=== PATIENT | male | born 1980 | race Caucasian/White ===

== ENCOUNTER 2016-12-15 15:34 | Inpatient (IN) | payer SELFPAY ==
[2016-12-15] MEDS ORDERED: Bacitracin pkt 1 gm Pkt TP STA (16:29)
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
[2016-12-15] MEDS ORDERED: Bacitracin pkt 1 gm Pkt TP ONE (17:01)
[2016-12-15 17:46] LABS: % BASOPHILS 0.9 % (0.0-2.0); % EOSINOPHILS 0.9 % (0.0-5.0); % LYMPHOCYTES 15.2 % (20.0-50.0); HEMOGLOBIN 15.9 gm/dL (13.2-17.3); MEAN CELL VOLUME 90.6 fl (80-99); MEAN CORPUSCULAR HEMOGLOBIN 31.3 pg (26.0-30.0); MEAN CORPUSCULAR HGB CONC 34.5 pg (28.0-36.0); MEAN PLATELET VOLUME 7.4 fl; NEUTROPHILE ABSOLUTE 6.9 Th/cmm (1.8-8.0); PLATELET COUNT 198 Th/cmm (150-400); RED BLOOD COUNT 5.08 Mil/cmm (4.30-5.70); RED CELL DISTRIBUTION WIDTH 13.3 % (11.5-20.0); WHITE BLOOD COUNT 9.2 Th/cmm (4.8-10.8)
[2016-12-15 18:06] LABS: ALB/GLOB RATIO 1.5 (1.0-1.8); ALKALINE PHOSPHATASE 49 U/L (34-104); BILIRUBIN,TOTAL 0.9 mg/dL (0.3-1.0); BUN - UREA NITROGEN 11 mg/dL (7-25); CALCIUM SERUM 9.4 mg/dL (8.6-10.3); CARBON DIOXIDE 22.8 mEq/L (21.0-31.0); CHLORIDE 108 mEq/L (98-107); GLUCOSE 100 mg/dL (70-105); POTASSIUM SERUM 3.8 mEq/L (3.5-5.1); SGOT 39 U/L (13-39); SGPT/ALT 43 U/L (7-52); SODIUM SERUM 141 mEq/L (136-145)
[2016-12-15 18:35] LABS: CREATINE KINASE MB 7.2 ng/mL (0.6-6.3)
[2016-12-15 19:47] LABS: AMPHETAMINE URINE POSITIVE (NEGATIVE); BARBITURATES URINE NEGATIVE (NEGATIVE); METHADONE URINE NEGATIVE (NEGATIVE)
[2016-12-15 19:48] LABS: URINE BILIRUBIN NEGATIVE (NEGATIVE); URINE COLOR STRAW; URINE GLUCOSE (UA) NEGATIVE (NEGATIVE)
[2016-12-15 19:49] LABS: URINE BLOOD NEGATIVE (NEGATIVE); URINE KETONE NEGATIVE (NEGATIVE); URINE PH 6.5; URINE PROTEIN NEGATIVE (NEGATIVE); URINE UROBILINOGEN 0.2 E.U./dL (0.2 - 1.0)
[2016-12-15 19:50] LABS: URINE BACTERIA NONE SEEN /hpf (NONE SEEN); URINE EPITHELIAL CELLS NONE SEEN /lpf (FEW); URINE RBC NONE SEEN /hpf (0-5); URINE WBC NONE SEEN /hpf (0-5)
[2016-12-15 21:39] LABS: % BASOPHILS 0.5 % (0.0-2.0); % EOSINOPHILS 1.4 % (0.0-5.0); % LYMPHOCYTES 23.2 % (20.0-50.0); % MONOCYTES 9.4 % (2.0-10.0); % NEUTROPHILS 65.5 % (40.0-80.0); HEMATOCRIT 44.9 % (39.0-49.0); HEMOGLOBIN 15.2 gm/dL (13.2-17.3); MEAN CELL VOLUME 90.5 fl (80-99); MEAN CORPUSCULAR HEMOGLOBIN 30.7 pg (26.0-30.0); MEAN CORPUSCULAR HGB CONC 33.9 pg (28.0-36.0); MEAN PLATELET VOLUME 7.2 fl; PLATELET COUNT 185 Th/cmm (150-400); RED BLOOD COUNT 4.96 Mil/cmm (4.30-5.70); RED CELL DISTRIBUTION WIDTH 13.5 % (11.5-20.0)
--- NOTE | 2016-12-15 21:43 | Admit Criteria Form ---
Admit Criteria Forms - Admit Criteria Diagnosis: CARDIOLOGY GRG Clinical Indications for Admission to Inpatient Care ( Place 'X' for any and all applicable criteria): Hospital admission is needed for appropriate care of the patient because of ANY ONE of the following (1): [ ] I. Hemodynamic instability as indicated by ALL of the following (1)(2)(3) (4)(5) [ ]a) Vital signs or other findings not as expected for chronic patient condition or baseline [ ]b) Instability indicated by ANY ONE of the following: [ ]i) Hypotension [ ]ii) Symptomatic Tachycardia unresponsive to treatment ( e.g., analgesia, fluids, sedation as indicated) [ ]iii) Inadequate perfusion indicated by ANY ONE of the following: [ ] 1) Lactic acidosis (> 2 mmol/L) [ ] 2) New abnormal capillary refill (> 3 seconds) [ ] 3) Reduced urine output [ ] 4) New altered mental status [ ]iv) Orthostatic vital sign changes unresponsive to treatment (e.g., fluids) [ ]v) IV inotropic or vasopressor medication required to maintain adequate blood pressure or perfusion [ ] II. Severe heart failure as indicated by ANY ONE of the following(17)(18) [ ]a) Respiratory distress [ ]b) Hypotension [ ]c) Anasarca (refractory to outpatient therapy) [ ]d) Cardiac arrhythmias of immediate concern [ ]e) Myocardial ischemia [ ] III. Cardiac arrhythmias or findings of immediate concern indicated by ANY ONE of the following (19)(20): [ ] a) Heart rhythms that are inherently dangerous or unstable indicated by ANY ONE of the following (21)(22)(23): [ ] i) Resuscitated ventricular fibrillation or cardiac arrest [ ] ii) Ventricular escape rhythm [ ] iii) Sustained ventricular tachycardia (30 seconds or more of ventricular rhythm at greater than 100 beats per minute) [ ] iv) Nonsustained ventricular tachycardia and ANY ONE of the following: [ ] 1) Suspected cardiac ischemia as cause or consequence of ventricular tachycardia [ ] 2) In setting of acute myocarditis [ ] b) Unstable cardiac conduction defects indicated by ANY ONE of the following(23)(24)(25) [ ] i) Type II second-degree atrioventricular block [ ]ii) Third-degree atrioventricular block [ ]iii) New-onset left bundle branch block with suspected myocardial ischemia [ ]c) Any heart rhythm and ANY ONE of the following (21)(22)(26)(27) (28) [ ] i) Continuous long-term ECG monitoring needed (e.g., initiation of drug requiring monitoring for more than 24 hours) [ ] ii) Patient has automatic implanted cardioverter defibrillator that is repeatedly firing, malfunctioning, or in need of immediate adjustment of settings beyond the scope of ambulatory or observation care [ ]d) Heart rhythms of concern due to ANY ONE of the following: [ ] i) Hypotension [ ] ii) Respiratory distress [ ] iii) Association with other significant symptoms (e.g., bradycardia with syncope or ongoing dizziness, supraventricular tachycardia with chest pain (14)(15)(17) [ ] IV. Monitoring for cardiac contusion beyond the scope of observation care needed [A](30)(31)(32) [ ] V. Surgical or device complication (e.g., valve replacement complication , pacemaker dysfunction) (35)(41)(44)(45)(46) [ ] . Inpatient palliative care needed. [B](49) Also use Inpatient Palliative Care Criteria [ ] VII. Nonbacterial thrombotic (marantic) endocarditis (36)(43)(47)(48) [X] VIII. Cardiology condition, symptom, or finding for which emergency and observation care has failed or are not considered appropriate. [ ] IX. Acute valvular disease requiring inpatient as indicated by ANY ONE of the following (41) [ ]a) Acute valvular regurgitation (42) [ ]b) Noninfectious valvulitis (43) [ ]c) Obstructive valve thrombosis [ ]d) Paravalvular leak [ ]e) Other significant valvular disorder remaining after emergency or observation level of care (as appropriate) [ ]X. Pericardial disease requiring inpatient treatment as indicated by ANY ONE of the following (33)(34)(35)(36)(37) [ ]a) Suspected tamponade (38)(39)(40) [ ]b) Hemopericardium [ ]c) Other significant pericardial disorder remaining after emergency or observation level of care (as appropriate) [ ] XI. Cardiac ischemia beyond scope of emergency and observation care. [ ] XII. Hypertension requiring inpatient treatment as indicated by ANY ONE of the following (6)(7)(8) [ ]a) SBP greater than 220 mm Hg or DBP greater than 120 mmHg despite treatment [ ]b) SBP greater than 140 mm Hg or DBP greater than 100 mm Hg with evidence of acute end organ damage as indicated by ANY ONE of the following [ ] i) Altered mental status [ ] ii) Acute renal failure as indicated by new onset of ANY ONE of the following (9)(10)(11)(12)(13) [ ]1) 3-fold rise in serum creatinine from baseline [ ]2) Serum creatinine greater than 4 mg/dL ( 354 micromoles/L) with acute rise greater than 0.5 mg/dL (44.2 micromoles/L) [ ]3) Reduction of more than 75% in estimated glomerular filtration rate from baseline [ ]4) Estimated glomerular filtration rate less than 35 mL/min/1.73m2 (0.59 mL/sec/1.73m2) in child up to 18 years of age [ ]5) Cessation of urine output indicated by ALL of the following [ ]A. Adequate volume status [ ]B. Inadequate urine output as indicated by ANY ONE of the following [ ]a. Urine output less than 0.3 mL/kg/hr for 24 hours [ ]b. Anuria (urine output less than 0.1 mL/kg/hr) for 12 hours [ ] iii) Aortic dissection [ ] iv) Myocardial Ischemia [ ] v) Left ventricular heart failure [ ]vi) Retinal Hemorrhage [ ]vii) Other significant finding [ ]c) Hypertension in child requiring inpatient treatment as indicated by ALL of the following(14)(15)(16) [ ] i) Outpatient treatment not effective, not available , or not appropriate [ ]ii) SBP or DBP greater than 95th percentile for age [ ]iii) Evidence of acute end organ damage as indicated by ANY ONE of the following [ ]1) Altered mental status [ ]2) Acute renal failure as indicated by new onset of ANY ONE of the following(9)(10)(11)(12)(13) [ ]A. 3-fold rise in serum creatinine from baseline [ ]B. Serum creatinine greater than 4 mg/dL (354 micromoles/L) with acute rise greater than 0.5 mg/dL (44.2 micromoles/L) [ ]C. Reduction of more than 75% in estimated glomerular filtration rate from baseline [ ]D. Estimated glomerular filtration rate less than 35 mL/min/1.73m2 (0.59 mL/sec/1.73m2) in child up to 18 years of age [ ]E. Cessation of urine output indicated by ALL of the following [ ]a. Adequate volume status [ ]b. Inadequate urine output as indicated by ANY ONE of the following [ ]i) Urine output less than 0.3 mL/kg/hr for 24 hours [ ]ii) Anuria ( urine output less than 0.1 mL/kg/hr) for 12 hours [ ]3) Severe headache [ ]4) Visual disturbance [ ]5) Retinal hemorrhage [ ]6) Other significant finding [ ]XIII. Complications of transplanted heart indicated by ANY ONE of the following(61): [ ]a) Acute graft rejection requiring inpatient management (eg, intravenous immunosuppression)(62)(63) [ ]b) Acute graft heart failure indicated by ANY ONE of the following(64): [ ]i) Hemodynamic instability [ ]ii) Cardiac arrhythmias of immediate concern [ ]iii) Pulmonary edema that is very severe (eg, mechanical ventilation needed, imminent or likely, need for 100% oxygen to keep oxygen saturation above 90%) [ ]iv) Pulmonary edema that is persistent as indicated by ALL of the following: [ ]1) New need for oxygen therapy to keep oxygen saturation above 90% (or increased FiO2 need from baseline) [ ]2) Has not improved sufficiently with emergency department or observation care IV diuretics or other heart failure treatments[E] [ ]v) Altered mental status that is severe or persistent [ ]vi) Increased creatinine (new on laboratory test) with reduction of more than 50% in estimated glomerular filtration rate from baseline [ ]vii) Progressively (ongoing) rising creatinine (known from past laboratory test) with reduction of more than 25% in estimated glomerular filtration rate from baseline [ ]viii) Acute renal failure [ ]ix) Acute peripheral ischemia (eg, examination shows pulseless, cool, mottled, or cyanotic extremity) [ ]x) Pulmonary artery catheter monitoring needed [ ]xi) Other sign or symptom of heart failure requiring inpatient treatment (ie, too severe or not responsive to outpatient and observation care treatment) [ ]c) Infection requiring inpatient management (eg, Hemodynamic instability, need for intravenous antimicrobial treatment)(66)(67)(68)(69)(70) [ ]d) Cardiac allograft vasculopathy requiring inpatient management ( eg evidence of cardiac ischemia)(71) [ ]e) Other complication of transplanted heart (eg, stroke, severe pulmonary hypertension, severe valvular dysfunction) requiring inpatient management(72) The original [facility] [employer] content created by [facility] [employer] has been revised. The portions of the content which have been revised are identified through the use of italic text or in bold, and [facility] has neither reviewed nor approved the modified material. All other unmodified content is copyright [facility] [employer]. Please see references footnoted in the original [facility] [employer] edition 2016
[2016-12-15 22:18] VITALS: BP 127/68
[2016-12-16 07:10] LABS: ANION GAP 8.8 (7.0-16.0); BUN - UREA NITROGEN 13 mg/dL (7-25); BUN/CREATININE RATIO 11.8; CALCIUM SERUM 9.7 mg/dL (8.6-10.3); CARBON DIOXIDE 29.2 mEq/L (21.0-31.0); CHLORIDE 105 mEq/L (98-107); CREATININE - SERUM 1.1 mg/dL (0.7-1.3); GLUCOSE 94 mg/dL (70-105); SODIUM SERUM 139 mEq/L (136-145)
--- NOTE | 2016-12-16 11:38 | Diagnostic Imaging Report ---
Portable chest x-ray HISTORY: Pain, trauma The heart size is difficult to assess with portable technique in a poor inspiration. No acute focal pulmonary processes. No hilar or mediastinal abnormalities. IMPRESSION: 1. No acute pulmonary processes
--- NOTE | 2016-12-16 11:39 | Diagnostic Imaging Report ---
Right RIBS (4 views) HISTORY: Pain No acute bony abnormalities. No fractures. No acute pulmonary parenchymal or pleural abnormalities. IMPRESSION: No acute abnormalities
== END 2016-12-16 06:18 | disposition left against medical advice (07) | DRG 313 ==
LOC: ER 15:34 → TELE 18:40
PROVIDERS: ADMIT Internal Medicine; ATTEND Internal Medicine
DX: R07.89 Other chest pain (principal); I44.7 Left bundle-branch block, unspecified; R94.31 Abnormal electrocardiogram [ECG] [EKG]; S31.133A Puncture wound of abdominal wall without foreign body, right lower quadrant without penetration into peritoneal cavity, initial encounter; X58.XXXA Exposure to other specified factors, initial encounter; Y93.9 Activity, unspecified; Y92.9 Unspecified place or not applicable; Y99.9 Unspecified external cause status
CPT/HCPCS: 36415-UA; 71010-TC; 71101-TC-RT; 80048-TC; 80053-TC; 80307; 81001-TC; 82550-TC; 82553; 84484-TC; 85025-TC; 93005; Z7610

== ENCOUNTER 2017-02-08 09:52 | Emergency (ER) | payer MEDICAID ==
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
--- NOTE | 2017-02-08 11:06 | Diagnostic Imaging Report ---
Pelvis (2 views) HISTORY: Pain, trauma The hip joints appear normal. No acute bony abnormalities. No fractures. Sacroiliac joints are normal. IMPRESSION: No acute bony abnormalities
--- NOTE | 2017-02-08 11:37 | Diagnostic Imaging Report ---
Lumbar spine (5 views) HISTORY: Pain Alignment is normal. Disc spaces are maintained. Hypertrophic spur formation noted about the endplates of L2 integrated degree L3, L4, and L5. No acute abnormalities. IMPRESSION: 1. No acute abnormalities 2. Degenerative changes
--- NOTE | 2017-02-08 11:37 | Diagnostic Imaging Report ---
Right hip (2 views) HISTORY: Pain, trauma The hip joint appears normal. The femoral head exhibits a normal contour. No focal lesions. No fractures. IMPRESSION: No acute abnormalities
== END 2017-02-08 11:45 | disposition home or self-care (01) ==
LOC: ER 09:52
DX: M54.41 Lumbago with sciatica, right side (principal); F17.200 Nicotine dependence, unspecified, uncomplicated
CPT/HCPCS: 99284; 96372; 72110; 72170; 73502; J1885; 73501; Z7502

== ENCOUNTER 2017-06-06 18:37 | Emergency (ER) | payer MEDICAID ==
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
[2017-06-06] MEDS ORDERED: Sodium Chloride 0.9% 1,000 ML IV ONE (19:13)
[2017-06-06 19:38] LABS: % BASOPHILS 0.4 % (0.0-2.0); % EOSINOPHILS 1.7 % (0.0-5.0); % LYMPHOCYTES 31.3 % (20.0-50.0); % MONOCYTES 9.3 % (2.0-10.0); % NEUTROPHILS 57.3 % (40.0-80.0); HEMATOCRIT 45.1 % (41.0-60); HEMOGLOBIN 15.2 gm/dL (12-16); MEAN CELL VOLUME 91.7 fl (80-99); MEAN CORPUSCULAR HEMOGLOBIN 30.8 pg (26.0-30.0); MEAN CORPUSCULAR HGB CONC 33.6 pg (28.0-36.0); MEAN PLATELET VOLUME 7.4 fl; NEUTROPHILE ABSOLUTE 4.3 Th/cmm (1.8-8.0); PLATELET COUNT 209 Th/cmm (150-400); RED BLOOD COUNT 4.93 Mil/cmm (4.30-5.70); RED CELL DISTRIBUTION WIDTH 13.1 % (11.5-20.0)
[2017-06-06 19:40] LABS: WHITE BLOOD COUNT 7.4 Th/cmm (4.8-10.8)
[2017-06-06 19:54] LABS: ALB/GLOB RATIO 1.3 (1.0-1.8); ALKALINE PHOSPHATASE 71 U/L (34-104); ANION GAP 11.2 (7.0-16.0); BILIRUBIN,TOTAL 0.5 mg/dL (0.3-1.0); BUN - UREA NITROGEN 12 mg/dL (7-25); BUN/CREATININE RATIO 13.3; CALCIUM SERUM 9.5 mg/dL (8.6-10.3); CHLORIDE 106 mEq/L (98-107); CHOLESTEROL 235 mg/dL (<200); CREATININE - SERUM 0.9 mg/dL (0.7-1.3); GLUCOSE 121 mg/dL (70-105); POTASSIUM SERUM 3.2 mEq/L (3.5-5.1); PROTHROMBIN TIME (TEST) 8.9 SECONDS (9.5-11.5); SGOT 18 U/L (13-39); SGPT/ALT 18 U/L (7-52); SODIUM SERUM 137 mEq/L (136-145); TRIGLYCERIDES 361 mg/dL (<150)
[2017-06-06 19:57] LABS: INR 0.86 (0.5-1.4)
--- NOTE | 2017-06-07 07:48 | Diagnostic Imaging Report ---
CHEST X-RAY: AP view INDICATION: pain COMPARISON: 12/15/2016 FINDINGS: There is mild elevation of the right hemidiaphragm. No focal consolidation or effusions. Heart size is normal. The osseous structures are intact. IMPRESSION: No focal airspace consolidation identified.
== END 2017-06-06 23:50 | disposition home or self-care (01) ==
LOC: ER 18:37
DX: F10.129 Alcohol abuse with intoxication, unspecified (principal); F17.200 Nicotine dependence, unspecified, uncomplicated
CPT/HCPCS: 36415-UA; 71010-TC; 80053-TC; 80061-TC; 80320-TC; 82550-TC; 83880-TC; 84484-TC; 85025-TC; 85610-TC; 93005; 94760; J7030